=== PATIENT | female | born 1985 | race Two or more races ===

== ENCOUNTER 2018-06-25 04:14 | Outpatient (CLI) | payer OTHER | END 2018-06-25 20:00 | disposition home or self-care (01) | LOC: OBS/DEL 04:14 | DX: O26.892 Other specified pregnancy related conditions, second trimester (principal); R10.2 Pelvic and perineal pain; Z34.02 Encounter for supervision of normal first pregnancy, second trimester ==

== ENCOUNTER 2018-09-06 19:34 | Inpatient (IN) | payer OTHER ==
[~2018-09-06] VITALS: Ht 162.6 cm; Wt 3.2 kg
[2018-09-06] MEDS ORDERED: PRENATABS RX T1 EACH PO (20:26)
[2018-09-08] MEDS ORDERED: SURFAK240 M1 PO (18:49)
[2018-09-08] MEDS ORDERED: PERCOCET 5-3251 EACH PO (18:49)
== END 2018-09-09 12:10 | DRG 788 ==
LOC: LDR 19:34 → OB/GYN 19:34
PROVIDERS: Specialist
PROC: 4A1HXCZ Monitoring of Products of Conception, Cardiac Rate, External Approach (ICD-10-PCS; 2018-09-06)
PROC: 10D00Z1 Extraction of Products of Conception, Low, Open Approach (ICD-10-PCS; principal; 2018-09-06 19:00)
DX: O32.8XX0 Maternal care for other malpresentation of fetus, not applicable or unspecified (principal); Z3A.37 37 weeks gestation of pregnancy; Z37.0 Single live birth